=== PATIENT | female | born 1950 | race Caucasian/White ===

== ENCOUNTER 2017-03-11 16:06 | Observation (INO) | payer MEDICARE ==
[2017-03-11] VITALS (8 sets, daily range): BP systolic 135–168; BP diastolic 70–84; PULSE 74–81; RESP 16–20; TEMP 96.6–98.6; O2SAT 95–96
[~2017-03-11] VITALS: Ht 171.4 cm; Wt 115.7 kg
[~2017-03-11 16:06] MED LIST: NORV2.5T11; OMEP20CA5
[2017-03-11] MEDS ORDERED: AMLO5 PO (16:35)
[2017-03-11] MEDS ORDERED: VITA100021 SL (16:35)
[2017-03-11] MEDS ORDERED: LEVO125T4 PO (16:35)
[2017-03-11] MEDS ORDERED: PRAM0.12 PO (16:35)
[2017-03-11] MEDS ORDERED: SODIUM CHLORIDE 0.9% FLUSH 10 ML FLUSH IVF PRN (16:45)
[2017-03-11 17:05] LABS: AUTOMATED NEUTROPHIL # 3.7 TH/MM3 (1.8-7.7); BASOPHIL % 0.6 % (0.0-2.0); EOSINOPHIL # 0.1 TH/MM3 (0-0.4); EOSINOPHIL % 2.4 % (0.0-4.0); HEMATOCRIT 39.3 % (35.0-46.0); HEMO FLAGS DIFF FINAL; LYMPH % 28.4 % (9.0-44.0); LYMPHOCYTE # 1.8 TH/MM3 (1.0-4.8); MEAN CELL VOLUME 89.7 FL (80.0-100.0); MEAN CORPUSCULAR HGB CONC 33.4 % (32.0-36.0); NEUT % 59.6 % (16.0-70.0); PLATELET COUNT 215 TH/MM3 (150-450); RED BLOOD COUNT 4.38 MIL/MM3 (4.00-5.30); RED CELL DISTRIBUTION WIDTH 13.5 % (11.6-17.2); WHITE BLOOD COUNT 6.2 TH/MM3 (4.0-11.0)
[2017-03-11 17:12] LABS: POTASSIUM 3.5 MEQ/L (3.5-5.1)
[2017-03-11 17:15] LABS: BICARBONATE 29.5 MEQ/L (21.0-32.0); MAGNESIUM 2.3 MG/DL (1.5-2.5)
[2017-03-11] MEDS: NITROGLYCERIN 0.4 MG SL 25 TABS/BTL SL SCH ×3 (17:15→17:25)
[2017-03-11] MEDS ORDERED: ASPIRIN 325 MG TAB PO ONE (17:15)
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
[2017-03-11 17:18] LABS: APTT (PATIENT) 25.9 SEC (24.3-30.1); PROTHROMBIN TIME - PATIENT 10.7 SEC (9.8-11.6)
--- NOTE | 2017-03-11 17:33 | RADRPT ---
THIS REPORT IS IN ERROR. PLEASE DISREGARD COPIES OF THIS REPORT. THIS REPORT IS IN ERROR. PLEASE DISREGARD COPIES OF THIS REPORT. THIS REPORT IS IN ERROR. PLEASE DISREGARD COPIES OF THIS REPORT. EXAM DATE/TIME: 03/11/2017 17:21 [facility] COMPARISON: No previous studies available for comparison. INDICATIONS : Chest pain since yesterday. MEDICAL HISTORY : None. SURGICAL HISTORY : None. ENCOUNTER: Initial ACUITY: 2 days PAIN SCORE: 3/10 LOCATION: Left chest FINDINGS: Lungs are clear. There is prominence of the mediastinum shadow possibly due to technique. CONCLUSION: No acute cardiopulmonary disease. Kourtney Serna MD on March 11, 2017 at 17:31 Board Certified Radiologist. This report was verified electronically. THIS REPORT IS IN ERROR. PLEASE DISREGARD COPIES OF THIS REPORT. THIS REPORT IS IN ERROR. PLEASE DISREGARD COPIES OF THIS REPORT. THIS REPORT IS IN ERROR. PLEASE DISREGARD COPIES OF THIS REPORT. MTDD
[2017-03-11] MEDS ORDERED: NALOXONE HCL 0.4 MG/ML AMP IV PRN (18:30)
[2017-03-11] MEDS ORDERED: SODIUM CHLORIDE 0.9% FLUSH 10 ML FLUSH IV FLUSH PRN (18:30)
[2017-03-11] MEDS ORDERED: MORPHINE SULFATE 4 MG/ML INJ IV PRN ×2 (18:30)
[2017-03-11] MEDS ORDERED: MAGNESIUM HYDROXIDE SUSP 30 ML CUP PO PRN (18:30)
[2017-03-11] MEDS ORDERED: ONDANSETRON HCL 4 MG/2 ML VIAL IVP PRN (18:30)
[2017-03-11] MEDS ORDERED: LACTULOSE SYRUP 20 GM/30 ML CUP PO PRN (18:30)
[2017-03-11] MEDS ORDERED: NITROGLYCERIN 0.4 MG SL 25 TABS/BTL SL PRN (19:30)
[2017-03-11] MEDS ORDERED: PILL SPLITTER OTHER PRN (19:45)
[2017-03-11] MEDS ORDERED: NAPROXEN 500 MG TAB PO ONE (19:45)
[2017-03-11] MEDS ORDERED: ENALAPRILAT 1.25 MG/ML VIAL IV PUSH PRN (19:45)
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
[2017-03-11] MEDS ORDERED: ENOXAPARIN SODIUM 40 MG/0.4 ML SYRINGE SQ SCH (20:00)
--- NOTE | 2017-03-11 20:03 | RADRPT ---
EXAM DATE/TIME: 03/11/2017 17:21 [facility] COMPARISON: No previous studies available for comparison. INDICATIONS : Chest pain while moving things around her house two days ago. MEDICAL HISTORY : None. SURGICAL HISTORY : None. ENCOUNTER: Initial ACUITY: 2 days PAIN SCORE: 3/10 LOCATION: Left chest FINDINGS: A single view of the chest demonstrates the lungs to be symmetrically aerated without evidence of mas s, infiltrate or effusion. The cardiomediastinal contours are unremarkable. Osseous structures are intact. CONCLUSION: No acute cardiopulmonary process. Josh Matute MD on March 11, 2017 at 20:02 Board Certified Radiologist. This report was verified electronically.
[2017-03-11] MEDS ORDERED: ATORVASTATIN 10 MG TAB PO SCH (21:00)
[2017-03-11] MEDS ORDERED: PRAMIPEXOLE DIHYDROCHLORIDE 0.25 MG TAB PO SCH (21:00)
[2017-03-11] MEDS: SODIUM CHLORIDE 0.9% FLUSH 10 ML FLUSH IV FLUSH SCH (22:31)
[2017-03-12] VITALS: BP 131/84; PULSE 76; RESP 20; TEMP 96.5; O2SAT 95
[2017-03-12 04:00] VITALS: BP 129/73; PULSE 67; RESP 20; TEMP 97.1; O2SAT 95
[2017-03-12 04:24] LABS: AUTOMATED NEUTROPHIL # 2.7 TH/MM3 (1.8-7.7); BASOPHIL % 0.9 % (0.0-2.0); EOSINOPHIL # 0.2 TH/MM3 (0-0.4); EOSINOPHIL % 3.1 % (0.0-4.0); HEMATOCRIT 31.4 % (35.0-46.0); HEMO FLAGS DIFF FINAL; LYMPH % 37.4 % (9.0-44.0); MEAN CELL VOLUME 88.1 FL (80.0-100.0); MEAN CORPUSCULAR HEMOGLOBIN 29.2 PG (27.0-34.0); MEAN CORPUSCULAR HGB CONC 33.1 % (32.0-36.0); MONO % 8.3 % (0.0-8.0); NEUT % 50.3 % (16.0-70.0); PLATELET COUNT 170 TH/MM3 (150-450); RED BLOOD COUNT 3.56 MIL/MM3 (4.00-5.30); RED CELL DISTRIBUTION WIDTH 12.9 % (11.6-17.2); WHITE BLOOD COUNT 5.3 TH/MM3 (4.0-11.0)
[2017-03-12 04:36] LABS: CHLORIDE 106 MEQ/L (98-107); POTASSIUM 3.6 MEQ/L (3.5-5.1); SODIUM (NA) 142 MEQ/L (136-145)
[2017-03-12 04:53] LABS: ALKALINE PHOSPHATASE 97 U/L (45-117); ALT (GPT) 21 U/L (10-53); ANION GAP 7 MEQ/L (5-15); AST (GOT) 18 U/L (15-37); BLOOD UREA NITROGEN 17 MG/DL (7-18); GLOMERULAR FILTRATION RATE 84 ML/MIN (>89); TOTAL BILIRUBIN ADULT 1.1 MG/DL (0.2-1.0)
[2017-03-12] MEDS ORDERED: LEVOTHYROXINE SODIUM 125 MCG TAB PO SCH (06:00)
[2017-03-12] MEDS: SODIUM CHLORIDE 0.9% FLUSH 10 ML FLUSH IV FLUSH SCH (07:55)
[2017-03-12 08:00] VITALS: PULSE 76
[2017-03-12] MEDS ORDERED: NAPROXEN 500 MG TAB PO SCH (08:00)
[2017-03-12 08:31] VITALS: BP 141/88; PULSE 70; RESP 19; TEMP 96.7; O2SAT 96
[2017-03-12] MEDS ORDERED: CYANOCOBALAMIN 1,000 MCG TAB PO SCH (09:00)
[2017-03-12 10:33] LABS: HDL CHOLESTEROL 57.3 MG/DL (40.0-60.0); LDL CHOLESTEROL 73 MG/DL (0-99)
--- NOTE | 2017-03-12 11:40 | EKG ---
Date Performed: 03/11/2017 Time Performed: 19:44:38 PTAGE: 66 years EKG: Sinus rhythm RIGHT BUNDLE BRANCH BLOCK ABNORMAL ECG PREVIOUS TRACING : 03/11/2017 16.13 No significant change from previous tracing noted. DOCTOR: Nahid Molina Interpretating Date/Time 03/12/2017 11:38:54
--- NOTE | 2017-03-12 11:46 | EKG ---
Date Performed: 03/11/2017 Time Performed: 16:13:54 PTAGE: 66 years EKG: Sinus rhythm RIGHT BUNDLE BRANCH BLOCK ABNORMAL ECG NO PREVIOUS TRACING DOCTOR: Nahid Molina Interpretating Date/Time 03/12/2017 11:45:35
[2017-03-12] MEDS ORDERED: NAPROXEN 250 MG TAB PO SCH (12:00)
[2017-03-12 12:10] VITALS: BP 145/89; PULSE 72; RESP 19; TEMP 96.7; O2SAT 96
[2017-03-12] MEDS ORDERED: REGADENOSON INJ 0.4 MG/5 ML SYR IV ONE (12:14)
--- NOTE | 2017-03-12 13:48 | TR ---
Date Performed: 03/12/2017 Time Performed: 12:21:11 DOCTOR: Vinicius Mcbride DRUG LIST: CLINICAL HISTORY: CHEST PAIN REASON FOR TEST: Chest pain REASON FOR ENDING: OBSERVATION: CONCLUSION: Lexiscan stress test was performed under standard four minute protocol. Radionuclide was injected one minute prior to ending the test. No electrocardiographic abormalities were present to suggest ischemia. Nuclear imaging and interpretation are pending. COMMENTS: NO CHANGES DIAGNOSTIC OF ISCHEMIA. LOW PROBABILITY OF SEVERE CAD. SCAN PENDING
--- NOTE | 2017-03-12 14:18 | RADRPT ---
EXAM DATE/TIME: 03/12/2017 12:01 [facility] COMPARISON: No previous studies available for comparison. INDICATIONS : Substernal chest pain radiating to left jaw. Angina. Right bundle branch block. DOSE: 35 mCi Tc99m Myoview at stress. 11 mCi Tc99m Myoview at rest. 0.4 mg Lexiscan STRESS SYMPTOMS: Headache, dyspnea and nausea. EJECTION FRACTION: 63% MEDICAL HISTORY : Hypertension. SURGICAL HISTORY : Bilateral ankle and small bowel. ENCOUNTER: Initial ACUITY: 2 days PAIN SCALE: 6/10 LOCATION: Substernal chest TECHNIQUE: The patient underwent pharmacologic stress with infusion of prescribed dose. Continuous ECG tracing was monitored during stress. Gated SPECT imaging was performed after stress and conventional SPECT i maging was performed at rest. The examination was performed on a SPECT/CT scanner, both attenuation and non-corrected datasets were reviewed. FINDINGS: DISTRIBUTION: The maximum perfused segment at stress is in the antrolateral wall. PERFUSION STUDY: The pattern of perfusion at stress is within normal limits. GATED STUDY: There is intact wall motion and thickening without hypokinetic or dyskinetic segments. CONCLUSION: No appreciable ischemia. RISK CATEGORY: Low (<1% Annual Mortality Rate) Kourtney Serna MD on March 12, 2017 at 14:14 Board Certified Radiologist. This report was verified electronically.
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
[2017-03-13] MEDS ORDERED: ASPIRIN 325 MG TAB PO SCH (09:00)
--- NOTE | 2017-03-13 13:29 | EKG ---
Date Performed: 03/12/2017 Time Performed: 08:07:20 PTAGE: 66 years EKG: Sinus rhythm RIGHT BUNDLE BRANCH BLOCK Compared to prior tracing no significant change ABNORMAL ECG PREVIOUS TRACING : 03/11/2017 19.44 DOCTOR: Bala Garcia Interpretating Date/Time 03/13/2017 13:28:06
[2017-04-22] MEDS ORDERED: PANT20 PO (12:39)
[2017-04-27] MEDS ORDERED: OXYC1TAB36 PO (14:29)
[2017-04-27] MEDS ORDERED: PROT40TA PO (14:29)
[2017-04-27] MEDS ORDERED: TRAM50TA PO (14:29)
== END 2017-03-12 15:19 | disposition home or self-care (01) ==
LOC: PHED 16:06 → PHEDA 18:45 → PH3B 20:34
PROVIDERS: ADMIT Hospitalist; ATTEND Hospitalist
DX: R07.9 Chest pain, unspecified (principal); R06.81 Apnea, not elsewhere classified; K29.50 Unspecified chronic gastritis without bleeding; I10 Essential (primary) hypertension; I25.10 Atherosclerotic heart disease of native coronary artery without angina pectoris; E03.9 Hypothyroidism, unspecified; I45.10 Unspecified right bundle-branch block; G25.81 Restless legs syndrome; K21.9 Gastro-esophageal reflux disease without esophagitis; Z79.82 Long term (current) use of aspirin
CPT/HCPCS: 71010; 78452; 80048; 80053; 80061; 82550; 82607; 83735; 84484; 85025; 85610; 85730; 93005; 93017; 96372; 99285; A9502; G0378; J1650; J2785